=== PATIENT | male | born 1965 | race Two or more races ===

== ENCOUNTER 2017-03-26 09:45 | Inpatient (IN) | payer MEDICAID ==
[~2017-03-26] VITALS: Ht 172.7 cm; Wt 92.0 kg
[2017-03-26] MEDS ORDERED: SODIUM CHLORIDE 0.9% 1,000 ML IV ONE ×2 (13:39)
[2017-03-26] MEDS ORDERED: CLINDAMYCIN 900MG IV 50 ML IV ONE (13:45)
[2017-03-26] MEDS ORDERED: PIPERACILLIN-TAZOB 3.375GM 50 ML IV ONE (13:45)
[2017-03-26 15:45] LABS: Basophils # (auto) 0.1 uL; Basophils % (auto) 0.8 % (0.0-2.0); Eosinophils # (auto) 0.3 uL; Eosinophils % (auto) 4.1 % (0.0-7.0); Hematocrit 50.7 % (41.0-53.0); Hemoglobin 16.9 g/dL (13.5-17.5); Lymphocytes # (auto) 2.1 uL; Mean Corpuscular Hemoglobin 29.9 pg (28.0-32.0); Mean Corpuscular Hgb Conc. 33.3 g/dL (32.0-36.0); Monocytes # (auto) 0.5 uL; Monocytes % (auto) 7.4 % (0.0-12.0); Neutrophils # (auto) 4.1 uL; Neutrophils % (auto) 57.7 % (37.0-80.0); Platelet Count (auto) 293 10^3/uL (140-450); Red Blood Cells 5.64 10^6/uL (4.5-5.90); Red Cell Distribution Width 14.9 % (11.8-14.3); White Blood Cell 7.1 10^3/uL (4.4-10.8)
[2017-03-26 15:56] LABS: INR 1.03 (0.9-1.15); Partial Thromboplastin Time 25.1 sec (22.64-33.71); Prothrombin Time 11.2 sec (9.37-12.3)
[2017-03-26 15:57] LABS: Albumin 4.4 g/dL (3.4-5.0); BUN/Creatinine Ratio 13.9; Bilirubin, Total 0.7 mg/dL (0.2-1.0); Calcium 9.4 mg/dL (8.5-10.1); Potassium 3.4 mmol/L (3.5-5.1); Total Protein 8.4 g/dL (6.4-8.2)
[2017-03-26] MEDS ORDERED: cefTRIAXone 1GM/10ml IVPUSH 10 ML IV ONE (18:30)
[2017-03-26] MEDS ORDERED: MORPHINE SULFATE 10 MG/ML INJ 1ML SDV IV PRN (18:30)
[2017-03-26] MEDS ORDERED: POTASSIUM CHL 10 Meq TABLET PO ONE (18:30)
[2017-03-26] MEDS ORDERED: ONDANSETRON HCL 4 MG/2 ML VIAL IV PRN (18:30)
[2017-03-26] MEDS ORDERED: TEMAZEPAM 15 MG CAP PO PRN (18:30)
[2017-03-26] MEDS ORDERED: ACETAMINOPHEN 325 MG TAB PO PRN (18:30)
[2017-03-26] MEDS ORDERED: HYDROcodone-ACET 5/325MG TAB PO PRN (18:30)
[2017-03-26] MEDS ORDERED: DOCUSATE SOD 100 MG CAP PO PRN (18:30)
[2017-03-26] MEDS: CLINDAMYCIN 300MG IV 50 ML IV SCH (21:36)
[2017-03-26] MEDS: ASCORBIC ACID 500 MG TAB PO SCH (21:36)
[2017-03-26] MEDS: FAMOTIDINE 20 MG TAB PO SCH (21:36)
[2017-03-26 22:00] VITALS: BP 144/99
[2017-03-26] MEDS: SODIUM CHLOR 0.9% PF (SALINE LOCK) 10ML VIAL IV SCH (22:08)
[2017-03-26 22:50] VITALS: BP 144/99
[2017-03-27] MEDS ORDERED: FENO1TAB42 PO (00:02)
[2017-03-27] MEDS ORDERED: PANT40TA2 PO (00:02)
[2017-03-27] MEDS ORDERED: HYDR-4683 PO (00:02)
[2017-03-27 02:21] VITALS: BP 144/99
[2017-03-27 05:00] VITALS: BP 116/89
[2017-03-27 05:38] LABS: Urine WBC None Seen /hpf (0 - 3)
[2017-03-27] MEDS: CLINDAMYCIN 300MG IV 50 ML IV SCH (05:40)
[2017-03-27] MEDS: SODIUM CHLOR 0.9% PF (SALINE LOCK) 10ML VIAL IV SCH (05:41)
[2017-03-27 05:50] LABS: Urine Bacteria NONE SEEN /hpf (None Seen); Urine Blood Negative /uL (Negative); Urine Specific Gravity 1.017 (1.001-1.035)
[2017-03-27 05:58] LABS: Alcohol, Urine < 3.0 mg/dL (0-5); Amphetamine Screen, Urine POSITIVE (NEGATIVE); Barbiturate Scree,Urine NEGATIVE (NEGATIVE); Benzodiazephine Screen, Urine NEGATIVE (NEGATIVE); Cannabinoid Screen, Urine POSITIVE (NEGATIVE); Cocaine Screen, Urine NEGATIVE (NEGATIVE); Opiate Scree,Urine NEGATIVE (NEGATIVE); Phencyclidine Screen, Urine NEGATIVE (NEGATIVE)
[2017-03-27 06:04] LABS: Basophils # (auto) 0 uL; Basophils % (auto) 0.8 % (0.0-2.0); Eosinophils # (auto) 0.5 uL; Eosinophils % (auto) 8.4 % (0.0-7.0); Hematocrit 45.7 % (41.0-53.0); Hemoglobin 15.3 g/dL (13.5-17.5); Lymphocytes # (auto) 1.9 uL; Lymphocytes % (auto) 34.9 % (10.0-50.0); Mean Corpuscular Hemoglobin 30.1 pg (28.0-32.0); Mean Corpuscular Hgb Conc. 33.5 g/dL (32.0-36.0); Mean Corpuscular Volume 89.8 fL (80.0-100.0); Monocytes # (auto) 0.4 uL; Monocytes % (auto) 7.2 % (0.0-12.0); Neutrophils # (auto) 2.7 uL; Neutrophils % (auto) 48.7 % (37.0-80.0); Nucleated Red Blood Cells % 0.2 %; Platelet Count (auto) 249 10^3/uL (140-450); Red Blood Cells 5.09 10^6/uL (4.5-5.90); Red Cell Distribution Width 14.6 % (11.8-14.3); White Blood Cell 5.5 10^3/uL (4.4-10.8)
[2017-03-27 08:00] VITALS: BP 122/72
[2017-03-27 09:00] VITALS: BP 122/72
[2017-03-27] MEDS ORDERED: cefTRIAXone 1GM/10ml IVPUSH 10 ML IV SCH (09:00)
[2017-03-27 09:29] LABS: Potassium 3.7 mmol/L (3.5-5.1)
[2017-03-27] MEDS ORDERED: MULTIPLE VITAMIN TAB PO SCH (10:00)
[2017-03-27] MEDS ORDERED: NEOMYCIN-BACITRACIN-POLYM UNITDOSE PKG TOP OINT TOP ONE (10:00)
[2017-03-27] MEDS ORDERED: FENOFIBRATE 145MG TABLET PO SCH (10:00)
[2017-03-27] MEDS ORDERED: DOXYCYCLINE 100 MG TAB/CAP PO ONE (10:00)
[2017-03-27] MEDS ORDERED: ZINC SULFATE 220 MG CAP PO SCH (10:00)
[2017-03-27 10:24] LABS: Albumin 3.3 g/dL (3.4-5.0); BUN/Creatinine Ratio 16.5; Bilirubin, Total 0.4 mg/dL (0.2-1.0); Calcium 8.9 mg/dL (8.5-10.1); Total Protein 6.7 g/dL (6.4-8.2)
[2017-03-27] MEDS: FAMOTIDINE 20 MG TAB PO SCH (10:26)
[2017-03-27] MEDS: ASCORBIC ACID 500 MG TAB PO SCH (10:27)
== END 2017-03-27 16:00 | disposition home or self-care (01) | DRG 383 ==
LOC: ER 09:45 → OVERFLOW 09:46 → WEST WING 20:06
PROVIDERS: ADMIT Internal Medicine; ATTEND Internal Medicine
DX: L03.116 Cellulitis of left lower limb (principal); E78.5 Hyperlipidemia, unspecified; K21.9 Gastro-esophageal reflux disease without esophagitis; M19.90 Unspecified osteoarthritis, unspecified site; L03.115 Cellulitis of right lower limb; E87.6 Hypokalemia; N18.2 Chronic kidney disease, stage 2 (mild); Z88.6 Allergy status to analgesic agent; Z88.0 Allergy status to penicillin; Z88.8 Allergy status to other drugs, medicaments and biological substances; Z83.3 Family history of diabetes mellitus; Z82.79 Family history of other congenital malformations, deformations and chromosomal abnormalities
CPT/HCPCS: 36415; 71045; 80053; 80307; 81001; 85025; 85610; 85730; 87040; 87077; 87205; 96361; 96365; 96375; J2543; J3490

== ENCOUNTER 2019-11-20 08:30 | Inpatient (IN) | payer MEDICAID, OTHER ==
[~2019-11-20] VITALS: Ht 172.7 cm; Wt 99.0 kg
[~2019-11-20 08:30] MED LIST: FENO145T27 PO; HYDR-4833 PO; PANT40TA2 PO
[2019-11-20] MEDS ORDERED: SODIUM CHLORIDE 0.9% 500 ML IV ONE (08:47)
[2019-11-20] MEDS ORDERED: methylPREDNISolone SOD SUCC 125 MG/2 ML VL IV ONE (09:00)
[2019-11-20] MEDS ORDERED: MORPHINE SULF INJ 2 MG/ML SYRINGE 1ML IV ONE (09:00)
[2019-11-20] MEDS ORDERED: diphenhdrAMINE HCL 50 MG/1 ML VL IV ONE (09:00)
[2019-11-20 09:04] LABS: Basophils # (auto) 0 10 ^3/uL (0-0.2); Basophils % (auto) 0.5 % (0.0-2.0); Eosinophils # (auto) 0.5 10 ^3/uL (0-0.8); Eosinophils % (auto) 8.4 % (0.0-7.0); Hematocrit 48.2 % (41.0-53.0); Lymphocytes % (auto) 18.2 % (10.0-50.0); Mean Corpuscular Hemoglobin 30.8 pg (28.0-32.0); Mean Corpuscular Hgb Conc. 33.2 g/dL (32.0-36.0); Mean Corpuscular Volume 92.7 fL (80.0-100.0); Monocytes # (auto) 0.5 10 ^3/uL (0-1.3); Neutrophils # (auto) 3.7 10 ^3/uL (1.6-8.6); Neutrophils % (auto) 64.9 % (37.0-80.0); Nucleated Red Blood Cells % 0.1 %; Platelet Count (auto) 197 10^3/uL (140-450); Red Cell Distribution Width 13.6 % (11.8-14.3); White Blood Cell 5.7 10^3/uL (4.4-10.8)
[2019-11-20 09:24] LABS: Albumin 3.7 g/dL (3.4-5.0); Calcium 8.8 mg/dL (8.5-10.1)
[2019-11-20 09:33] LABS: BUN/Creatinine Ratio 14.2; Bilirubin, Total 0.3 mg/dL (0.2-1.0); Total Protein 7.6 g/dL (6.4-8.2)
[2019-11-20] MEDS ORDERED: IOHEXOL 300 MG/ML 100ML BOTTLE IJ ONE ×2 (15:30→15:33)
[2019-11-20] MEDS ORDERED: DEXTROSE (50%) 50ML SYRG IV PRN (17:30)
[2019-11-20] MEDS ORDERED: MORPHINE SULF INJ 2 MG/ML SYRINGE 1ML IV PRN (17:30)
[2019-11-20] MEDS ORDERED: ACETAMINOPHEN 325 MG TAB PO PRN (17:30)
[2019-11-20] MEDS ORDERED: NITROGLYCERIN 0.4 MG SL TAB SL PRN (17:30)
[2019-11-20] MEDS: HYDROcodone-ACET 5/325MG TAB PO PRN (18:57)
[2019-11-20 20:54] VITALS: BP 104/69
[2019-11-20 21:00] VITALS: BP 104/69
[2019-11-20] MEDS: diphenhdrAMINE HCL 25 MG CAP PO SCH (21:26)
[2019-11-20] MEDS: InsuLIN REG 1unit/0.01ml Soln (100units/ml) SC SCH (21:27)
[2019-11-20] MEDS: ACCU-CHEK COMFORT CURVE STRIP VI SCH (21:27)
[2019-11-21] MEDS: HYDROcodone-ACET 5/325MG TAB PO PRN ×3 (00:48→13:55)
[2019-11-21] MEDS ORDERED: LISI-275 PO (02:24)
[2019-11-21] MEDS ORDERED: METF-370 PO (02:24)
[2019-11-21 05:00] VITALS: BP 112/68
[2019-11-21] MEDS: diphenhdrAMINE HCL 25 MG CAP PO SCH ×2 (05:41→14:00)
[2019-11-21] MEDS: ACCU-CHEK COMFORT CURVE STRIP VI SCH ×2 (06:19→12:07)
[2019-11-21] MEDS: InsuLIN REG 1unit/0.01ml Soln (100units/ml) SC SCH ×2 (06:19→12:07)
[2019-11-21 09:04] VITALS: BP 113/74
[2019-11-21] MEDS ORDERED: LISINOPRIL 5 MG TAB PO SCH (10:00)
[2019-11-21] MEDS ORDERED: PANTOPRAZOLE 40 MG TAB PO SCH (10:00)
[2019-11-21] MEDS ORDERED: predniSONE 20 MG TAB PO SCH (10:00)
[2019-11-21] MEDS ORDERED: PRED20TA2 PO (11:58)
[2019-11-21 12:43] VITALS: BP 138/71
[2019-11-21 13:24] VITALS: BP 113/74
== END 2019-11-21 16:00 | disposition home or self-care (01) | DRG 811 ==
LOC: ER 08:30 → TELE-CENTR 08:31
PROVIDERS: ADMIT Internal Medicine; ATTEND Internal Medicine
DX: T78.3XXA Angioneurotic edema, initial encounter (principal); J98.11 Atelectasis; J02.9 Acute pharyngitis, unspecified; E66.9 Obesity, unspecified; T36.8X5A Adverse effect of other systemic antibiotics, initial encounter; Z68.33 Body mass index [BMI] 33.0-33.9, adult; Z79.84 Long term (current) use of oral hypoglycemic drugs; I10 Essential (primary) hypertension; G89.4 Chronic pain syndrome; E11.9 Type 2 diabetes mellitus without complications; Z82.0 Family history of epilepsy and other diseases of the nervous system; Z83.3 Family history of diabetes mellitus; Z87.891 Personal history of nicotine dependence; Z88.6 Allergy status to analgesic agent
CPT/HCPCS: 36415; 70490; 70491; 71045; 80053; 82962; 85025; G0378

== ENCOUNTER 2020-04-25 08:59 | Emergency (ER) | payer MEDICAID, OTHER ==
[~2020-04-25] VITALS: Ht 172.7 cm; Wt 99.8 kg
[~2020-04-25 08:59] MED LIST changes: +LISI-275 PO; +METF-370 PO; +PRED20TA2 PO
[2020-04-25 09:01] VITALS: BP 145/79
== END 2020-04-25 09:07 | disposition left against medical advice (07) ==
LOC: EDBD 08:59 → ER 08:59
DX: T39.1X1A Poisoning by 4-Aminophenol derivatives, accidental (unintentional), initial encounter (principal); Z53.21 Procedure and treatment not carried out due to patient leaving prior to being seen by health care provider; Y92.89 Other specified places as the place of occurrence of the external cause

== ENCOUNTER 2022-04-04 19:25 | Inpatient (IN) | payer MEDICAID, OTHER ==
[~2022-04-04] VITALS: Ht 172.7 cm; Wt 94.7 kg
[2022-04-04 22:56] VITALS: BP 127/78
[2022-04-04] MEDS ORDERED: NITROGLYCERIN 0.4 MG SL TAB SL PRN (23:00)
[2022-04-04] MEDS ORDERED: MORPHINE SULFATE INJ 2 MG/ml SYRG IV PRN (23:00)
[2022-04-04] MEDS: SODIUM CHLORIDE 0.9% 1,000 ML IV SCH (23:00)
[2022-04-05] VITALS (9 sets, daily range): BP systolic 101–132; BP diastolic 68–98
[2022-04-05 01:03] LABS: Basophils # (auto) 0 10 ^3/uL (0-0.2); Basophils % (auto) 0.6 % (0.0-2.0); Eosinophils # (auto) 0.3 10 ^3/uL (0-0.8); Eosinophils % (auto) 3.6 % (0.0-7.0); Hematocrit 51.1 % (41.0-53.0); Hemoglobin 16.7 g/dL (13.5-17.5); Lymphocytes # (auto) 1.9 10 ^3/uL (0.4-5.4); Lymphocytes % (auto) 26.6 % (10.0-50.0); Mean Corpuscular Hemoglobin 30.4 pg (28.0-32.0); Mean Corpuscular Hgb Conc. 32.8 g/dL (32.0-36.0); Mean Corpuscular Volume 92.7 fL (80.0-100.0); Monocytes # (auto) 0.6 10 ^3/uL (0-1.3); Monocytes % (auto) 8.2 % (0.0-12.0); Neutrophils # (auto) 4.3 10 ^3/uL (1.6-8.6); Nucleated Red Blood Cells % 0.1 %; Red Blood Cells 5.51 10^6/uL (4.5-5.90); Red Cell Distribution Width 13.2 % (11.8-14.3); White Blood Cell 7.1 10^3/uL (4.4-10.8)
[2022-04-05 01:16] LABS: BUN/Creatinine Ratio 20.2; Calcium 9.8 mg/dL (8.5-10.1); Potassium 4.3 mmol/L (3.5-5.1)
[2022-04-05 01:19] LABS: INR 0.97 (0.9-1.15)
[2022-04-05 04:16] LABS: Urine WBC None Seen /hpf (0 - 3)
[2022-04-05 04:29] LABS: Urine Bacteria NONE SEEN /hpf (None Seen); Urine Blood Negative /uL (Negative); Urine Mucus FEW (None Seen); Urine Specific Gravity 1.011 (1.001-1.035)
[2022-04-05] MEDS: SODIUM CHLORIDE 0.9% 1,000 ML IV SCH (09:37)
[2022-04-05] MEDS ORDERED: HEPARIN SODIUM (PORCINE) 5000 UNITS/ML 1ML VIAL ONE (09:53)
[2022-04-05] MEDS ORDERED: ANGIOMAX 250 MG VIAL IV ONE (09:53)
[2022-04-05] MEDS ORDERED: VERAPAMIL 2.5MG/ML INJ 2ML VIAL IV ONE (09:53)
[2022-04-05] MEDS ORDERED: fentaNYL CITRATE 100 MCG/2 ML VL ONE (09:54)
[2022-04-05] MEDS ORDERED: MIDAZOLAM HCL 2MG/2ML 2ml VIAL (1mg/ml) ONE (09:54)
[2022-04-05] MEDS ORDERED: SODIUM CHL 0.9% 50 ML ONE (09:54)
[2022-04-05] MEDS ORDERED: TICAGRELOR 90 MG TAB ONE (10:32)
[2022-04-05] MEDS ORDERED: PANT40TA2 PO (13:37)
[2022-04-05] MEDS ORDERED: TICA90TA PO (13:37)
[2022-04-05] MEDS ORDERED: RIVA10TA2 PO (13:37)
[2022-04-05] MEDS ORDERED: FENO145T27 PO (13:37)
[2022-04-05] MEDS ORDERED: ONDANSETRON HCL 4 MG/2 ML VIAL IV PRN (14:00)
[2022-04-05] MEDS: HYDROcodone-ACET 10/325MG TAB PO PRN ×2 (14:44→21:17)
[2022-04-05] MEDS: PANTOPRAZOLE 40 MG TAB PO SCH (15:39)
[2022-04-05] MEDS ORDERED: PANTOPRAZOLE 40 MG TAB PO ONE (15:45)
[2022-04-05] MEDS: RIVAROXABAN 10 MG TAB PO SCH (18:45)
[2022-04-05] MEDS: TICAGRELOR 90 MG TAB PO SCH (21:17)
[2022-04-05] MEDS ORDERED: ATORVASTATIN 20 MG TAB PO SCH (22:00)
[2022-04-05] MEDS ORDERED: RIVAROXABAN 10 MG TAB PO SCH (22:00)
[2022-04-06] MEDS: RIVAROXABAN 10 MG TAB PO SCH (04:52)
[2022-04-06 07:34] LABS: Cholesterol 206 mg/dL (< 200); HDL Cholesterol 43 mg/dL (40-59); LDL Cholesterol 151 mg/dL (< 100); Triglycerides 197 mg/dL (< 150)
[2022-04-06] MEDS: TICAGRELOR 90 MG TAB PO SCH (08:35)
[2022-04-06] MEDS: PANTOPRAZOLE 40 MG TAB PO SCH (08:35)
[2022-04-06] MEDS: HYDROcodone-ACET 10/325MG TAB PO PRN (08:35)
[2022-04-06 09:00] VITALS: BP 122/76
[2022-04-06] MEDS ORDERED: ATO40T PO (12:14)
[2022-04-06 13:00] VITALS: BP 132/68
== END 2022-04-06 16:20 | disposition home or self-care (01) | DRG 174 ==
LOC: WEST WING 22:58 → TELE-WESTW 23:40
PROVIDERS: ADMIT Hospitalist; ATTEND Hospitalist
PROC: 027035Z Dilation of Coronary Artery, One Artery with Two Drug-eluting Intraluminal Devices, Percutaneous Approach (ICD-10-PCS; principal; 2022-04-05)
PROC: B211YZZ Fluoroscopy of Multiple Coronary Arteries using Other Contrast (ICD-10-PCS; 2022-04-05)
DX: I21.4 Non-ST elevation (NSTEMI) myocardial infarction (principal); E11.9 Type 2 diabetes mellitus without complications; E66.9 Obesity, unspecified; E78.00 Pure hypercholesterolemia, unspecified; I10 Essential (primary) hypertension; I25.10 Atherosclerotic heart disease of native coronary artery without angina pectoris; Z20.822 Contact with and (suspected) exposure to COVID-19; K21.9 Gastro-esophageal reflux disease without esophagitis; Z82.0 Family history of epilepsy and other diseases of the nervous system; Z68.31 Body mass index [BMI] 31.0-31.9, adult; Z88.6 Allergy status to analgesic agent; Z88.8 Allergy status to other drugs, medicaments and biological substances; Z82.49 Family history of ischemic heart disease and other diseases of the circulatory system; Z83.3 Family history of diabetes mellitus
CPT/HCPCS: 36415; 71045; 80048; 80061; 81001; 83036; 85025; 85610; 85730; 86850; 86900; 86901; 87081; 92928; 92929; 93458; 99152; 99153; C1874; G0378; J2250

== ENCOUNTER 2023-01-10 15:25 | Emergency (ER) | payer MEDICAID ==
[~2023-01-10] VITALS: Ht 172.7 cm; Wt 84.0 kg
[~2023-01-10 15:25] MED LIST changes: +ATO40T PO; -PRED20TA2 PO; +RIVA10TA2 PO; +TICA90TA PO
[2023-01-10 16:29] LABS: Basophils # (auto) 0 10 ^3/uL (0-0.2); Basophils % (auto) 0.4 % (0.0-2.0); Eosinophils # (auto) 0.1 10 ^3/uL (0-0.8); Hematocrit 45.3 % (41.0-53.0); Hemoglobin 14.8 g/dL (13.5-17.5); Lymphocytes # (auto) 1.6 10 ^3/uL (0.4-5.4); Lymphocytes % (auto) 23.5 % (10.0-50.0); Mean Corpuscular Hemoglobin 30.5 pg (28.0-32.0); Mean Corpuscular Hgb Conc. 32.8 g/dL (32.0-36.0); Mean Corpuscular Volume 93.2 fL (80.0-100.0); Monocytes # (auto) 0.5 10 ^3/uL (0-1.3); Monocytes % (auto) 7.7 % (0.0-12.0); Neutrophils # (auto) 4.5 10 ^3/uL (1.6-8.6); Neutrophils % (auto) 66.4 % (37.0-80.0); Nucleated Red Blood Cells % 0.1 %; Red Blood Cells 4.86 10^6/uL (4.5-5.90); Red Cell Distribution Width 14.5 % (11.8-14.3); White Blood Cell 6.8 10^3/uL (4.4-10.8)
[2023-01-10] MEDS ORDERED: methylPREDNISolone SOD SUCC 125 MG/2 ML VL IM ONE (16:45)
[2023-01-10] MEDS ORDERED: FAMOTIDINE (10MG/ML) 2ML VL IV ONE (16:45)
[2023-01-10 16:56] LABS: Alanine Aminotransferase 32 U/L (7-40); Albumin 5.1 g/dL (3.2-4.8); Alkaline Phosphatase 58 U/L (46-116); Anion Gap 9 (5-15); Aspartate Aminotransferase 24 U/L (13-40); BUN/Creatinine Ratio 21.4 (10.0-20.0); Bilirubin, Total 0.4 mg/dL (0.2-1.0); Blood Urea Nitrogen 18 mg/dL (9-23); Calcium 10.4 mg/dL (8.7-10.4); Carbon Dioxide 25 mmol/L (20-30); Chloride 107 mmol/L (98-107); Glucose 98 mg/dL (74-106); Potassium 4.4 mmol/L (3.5-5.1); Sodium 141 mmol/L (136-145); Total Protein 7.4 g/dL (5.7-8.2)
[2023-01-10 19:23] LABS: Urine WBC None Seen /hpf (0 - 3)
[2023-01-10 19:41] LABS: Urine Bacteria NONE SEEN /hpf (None Seen); Urine Blood Negative /uL (Negative); Urine Clarity Clear (Clear); Urine Color Colorless (Yellow); Urine Protein, UAD Negative (Negative); Urine Specific Gravity 1.021 (1.001-1.035); Urine Urobilinogen Normal (Negative); Urine pH 6.5 (5.0-8.0)
[2023-01-10 20:13] VITALS: BP 130/79; TEMP 98.4
[2023-01-10 20:15] VITALS: PULSE 74; RESP 18; O2SAT 95
== END 2023-01-10 20:21 | disposition home or self-care (01) ==
LOC: ER 15:25
DX: T78.40XA Allergy, unspecified, initial encounter (principal); R79.89 Other specified abnormal findings of blood chemistry; X58.XXXA Exposure to other specified factors, initial encounter
CPT/HCPCS: 36415; 71045; 80053; 81001; 84484; 85025; 93005; 96372; 96374; 99285; J2930; J3490